=== PATIENT | female | born 1995 | race Caucasian/White ===

== ENCOUNTER → 2018-06-06 | Outpatient (CLI) | payer BC ==
[~2018-06-06] MED LIST: TRM50T PO
--- NOTE | 2018-06-06 14:59 | Diagnostic Imaging Report ---
PROCEDURE: US Non-ob pelvis comp/trans. TECHNIQUE: Multiple realtime grayscale images were obtained of the pelvis in various projections endovaginally. Transabdominal imaging was also performed. INDICATION: Irregular menses and infertility. FINDINGS: The uterus measures 7.1 x 3.8 x 3.5 cm. Endometrium is 3 mm in thickness. No myometrial mass is detected. Right ovary measures 4.4 x 3.2 x 3.4 cm and the left ovary measures 4.4 x 3.0 x 2.5 cm. Ovaries contain multiple follicles. Follicles do have somewhat peripheral distribution which can be seen with polycystic ovarian syndrome. There is blood flow to both ovaries. No adnexal mass or free fluid is seen. IMPRESSION: Unremarkable pelvic ultrasound. Ovarian follicular arrangement can be seen with polycystic ovarian syndrome. Clinical correlation is recommended. Dictated by: Dictated on workstation # [id number]
== END ==
LOC: RAD 11:12
PROVIDERS: ATTEND Obstetrics & Gynecology
DX: N91.1 Secondary amenorrhea (principal); N92.6 Irregular menstruation, unspecified; N97.9 Female infertility, unspecified
CPT/HCPCS: 76830; 76856